=== PATIENT | male | born 2000 | race Caucasian/White ===

== ENCOUNTER 2023-12-31 09:29 | Emergency (ER) | payer OTHER, SELFPAY ==
[2023-12-31 09:44] VITALS: BP 123/83; PULSE 80; RESP 18; TEMP 36.2; O2SAT 99; BMI 22.7
[2023-12-31 10:59] LABS: MANUAL DIFF FLAG NO
[2023-12-31 11:03] LABS: Appearance Urine Clear; Color Urine Yellow; Glucose Urine UA Negative (Negative); Leukocyte Esterase Urine Negative (Negative); Nitrite Urine Negative (Negative); PH 5.5 (5.0-9.0); Specific Gravity - Urine 1.025 (1.005-1.025); Urine Blood Negative (Negative); Urine Ketones Negative (Negative); Urine Protein Negative (Neg-Trace)
[2023-12-31 11:05] LABS: Basophils Percent Auto 0.6 % (0-2); Eosinophils Absolute Auto 0.1 X10*3/uL (0.0-0.4); Hematocrit 48.2 % (42.0-52.0); Hemoglobin 16.1 g/dl (14.0-18.0); Imm Gran Abs Auto 0.02 X10*3/uL (0.00-0.03); Imm Gran Pct Auto 0.3 % (0.0-0.4); Lymphocytes Absolute Auto 2.1 X10*3/uL (1.2-4.9); Lymphocytes Percent Auto 28.7 % (20-40); Mean Corpuscular HGB Conc 33.4 g/dl (31.0-36.0); Mean Corpuscular Hemoglobin 29.2 pg (27.0-33.0); Mean Corpuscular Volume 87.5 fL (80.0-98.0); Mean Platelet Volume 11.8 fL (9.4-12.4); Monocytes Absolute Auto 0.5 X10*3/uL (0.1-1.2); Monocytes Percent Auto 6.8 % (2-11); Neutrophils Absolute Auto 4.4 x10*3/uL (2.0-8.3); Neutrophils Percent Auto 61.6 % (45-73); Platelet Count 223 X10*3/uL (160-400); Red Blood Count 5.51 X10*6/uL (4.60-5.80); Red Cell Distribution Width 12.5 % (11.0-16.0); White Blood Count 7.2 X10*3/uL (4.8-10.8)
[2023-12-31 11:19] LABS: Alanine Aminotransferase 18 U/L (0-40); Albumin Level 4.6 g/dL (3.5-5.0); Alkaline Phosphatase 72 U/L (39-117); Anion Gap 9 (12-20); Aspartate Amino Transferase 20 U/L (5-37); Bilirubin Total 0.9 mg/dL (0.0-1.0); Blood Urea Nitrogen 11 mg/dL (9-16); Calcium 9.9 mg/dL (8.4-10.2); Carbon Dioxide 30 mmol/L (22-29); Chloride 105 mmol/L (96-108); Creatinine Clr Calc Pharmacy 101.6; Estimated Glomerular Filt Rate > 60; Glucose Random 95 mg/dL (60-115); Potassium 4.2 mmol/L (3.3-5.1); Sodium 140 mmol/L (135-145); Total Protein 7.7 g/dL (6.5-8.0)
[2023-12-31 11:40] LABS: Syphilis Screen Nonreactive (Nonreactive)
[2023-12-31 12:00] VITALS: BP 115/75; PULSE 85; TEMP 36.7; O2SAT 100
--- NOTE | 2023-12-31 13:19 | ED_ITS ---
[facility] - General Adult General Chief complaint: Headache Stated complaint: Headache Time Seen by Provider: 12/31/23 12:25 Source: patient and RN notes reviewed Mode of arrival: ambulatory Limitations: no limitations History of Present Illness ED Provider: Staci Ballesteros PA-C [facility] narrative: This is a 23-year-old male, with no known medical problems, who presents emergency department with complaints of headache, slight dysuria, and penile itching x2 weeks. Patient states that he was told by his partner that she had syphilis in the past. He states that since acknowledging this information he has felt ?unwell?. He states that he has had headaches, dysuria, and penile itching. He denies any testicular pain. No fevers, chills, nausea, vomiting or diarrhea. No change in diet. He does report increased diarrhea over the last several weeks. He also reports that he has lost approximately 6-7 lb without changing his diet over the last 2 weeks. No drug use. No penile rashes or lesions. Patient states that his partner told him last week that she tested positive for syphilis and received treatment. He has not had any lesions that he has noted. No other complaints or concerns at this time. MD complaint: Headache, dysuria, penile itching Onset (ago): week(s) Location: genitals Radiation: non-radiation Severity: moderate Quality: aching Pain Consistency: constant Relieving factors: none Exacerbating factors: none Associated symptoms: denies other symptoms Related Data Allergies Allergy/AdvReac Type Severity Reaction Status Date / Time No Known Allergies Allergy Verified 12/31/23 09:45 Review of Systems 2 Review of Systems: Yes all other systems are reviewed and are negative Constitutional: Constitutional: Reports as per [facility] Past Medical History Attestation statement: The following information was validated with the patient. Social History Social History Advance Directives: No Do you have a plan to hurt others: No Plan Physical Exam ED Vital Signs: Vital Signs - 24 hr 12/31/23 09:44 12/31/23 12:00 12/31/23 14:00 Temperature 97.2 F 98.1 F 98.2 F Pulse Rate 80 85 66 Respiratory Rate 18 Blood Pressure 123/83 115/75 122/78 Pulse Oximetry 99 100 99 Oxygen Delivery Method Room Air Room Air Room Air 12/31/23 15:58 Temperature 98.2 F Pulse Rate 66 Respiratory Rate 18 Blood Pressure 122/78 Pulse Oximetry 99 Oxygen Delivery Method Room Air BMI result Body Mass Index 22.7 Const General: cooperative, comfortable and no acute distress Orientation/consciousness: patient oriented x3 Limitations: no limitations HENMT Head: Yes normal to inspection, Yes normocephalic and Yes atraumatic Ears: hearing grossly normal bilaterally General nose exam: Normal external nose present Face and sinus: Yes normal facial exam Mouth: Normal oral and palatal mucosa present, oropharynx normal and moist mucous membranes Throat: Yes posterior oropharynx normal Eyes General: appearance normal, both eyes and all related structures Eyelids: Yes eyelids normal Conjunctivae: conjunctivae normal Sclerae: sclerae normal Pupils: Equal, round and reactive pupils present EOM: EOMs intact bilaterally Neck Neck: Yes normal visual inspection, Yes full ROM and Yes no lymphadenopathy Lymphatic: no lymphadenopathy noted Chest Chest palpation & inspection: normal inspection of the chest Resp Effort & Inspection: normal respiratory effort and able to speak in complete sentences Auscultation: clear to auscultation bilaterally, no crackles, no rales, no rhonchi and no wheezes Cardio Rate: regular rate Rhythm: regular rhythm Heart sounds: S1 normal heart sound present and S2 normal heart sound present GI Other: Abdomen is soft and nontender. Inspection: Yes normal to inspection Other: examination was performed with Lynette Islas RN present at all times Uncircumcised male, able to fully retract foreskin without difficulty, no penile lesions or tenderness. No drainage or discharge. No overlying erythema or warmth. No testicular pain or swelling Skin General skin exam: no rashes or lesions noted Trauma: no lacerations or abrasions Wounds: no wounds Neuro General: patient oriented x3 and moves all extremities Cranial nerves: Yes Equal, round and reactive pupils present Extrem General: Yes normal to inspection Right upper extremity: normal to inspection Left upper extremity: normal to inspection Right lower extremity: normal to inspection Left lower extremity: normal to inspection Course Reevaluation(s) Reevaluation #1: examination was unremarkable. Labs, unremarkable. He tested negative for syphilis, HIV, chlamydia and gonorrhea. Given known positive exposure to syphilis last week, it is unclear whether not this is too close to test positive for syphilis. Given this, I discussed the pros and cons of receiving pen G injection. He is agreeable as he would like to be treated for this given known positive exposure. His urine is unremarkable. He will follow-up with [facility] for primary care treatment. He understands and agrees with plan. Patient stable for discharge. Medications Administered Discontinued Medications Generic Name Dose Route Start Last Admin Trade Name Darren PRN Reason Stop Dose Admin Penicillin G Benzathine 2,400,000 unit 12/31/23 15:35 12/31/23 15:48 Penicillin G Benzathine 2,400,000 Unit/4 Ml Syringe IM 12/31/23 15:36 2,400,000 unit ONCE ONE Administration Medical Decision Making Medical Decision Making [facility] Narrative: This is a 23-year-old male who presents emergency department with complaints of weight loss, dysuria, and headaches over the last 2 weeks. On arrival, vital signs within normal limits. He is speaking full sentences under no acute distress. He recently moved to the area. He was told by his partner that she has a history of syphilis, unclear when she had this infection, however patient is concerned that he may have contracted this. He also reports 7 lb weight loss over the last 2 weeks without any changes in his diet. Does not have a primary care physician at this time. No family medical history. No profound weight loss, no out of the country travel. Differential diagnoses include STI exposure, UTI, cystitis, electrolyte derangement. Differential Diagnosis Differential Diagnoses: The differential diagnosis associated with the presentation includes See above Admission/Observation Consideration of admission/observation: Escalation of care including admission/observation considered Lab Data [facility] Lab Attestation statement: I reviewed the patient's lab results. No leukocytosis, stable H&H, chemistry within normal limits, negative gonorrhea chlamydia, RPR, and HIV. 12/31/23 10:55 12/31/23 10:55 Labs: Lab Results 12/31/23 12/31/23 Range/Units 10:55 14:01 WBC 7.2 (4.8-10.8) X10*3/uL RBC 5.51 (4.60-5.80) X10*6/uL Hgb 16.1 (14.0-18.0) g/dl Hct 48.2 (42.0-52.0) % MCV 87.5 (80.0-98.0) fL MCH 29.2 (27.0-33.0) pg MCHC 33.4 (31.0-36.0) g/dl RDW 12.5 (11.0-16.0) % Plt Count 223 (160-400) X10*3/uL MPV 11.8 (9.4-12.4) fL Immature Gran % (Auto) 0.3 (0.0-0.4) % Neut % (Auto) 61.6 (45-73) % Lymph % (Auto) 28.7 (20-40) % [place] % (Auto) 6.8 (2-11) % Eos % (Auto) 2.0 (0-4) % Baso % (Auto) 0.6 (0-2) % Lymph # (Auto) 2.1 (1.2-4.9) X10*3/uL [place] # (Auto) 0.5 (0.1-1.2) X10*3/uL Eos # (Auto) 0.1 (0.0-0.4) X10*3/uL Baso # (Auto) 0.0 (0.0-0.2) X10*3/uL Abs Immat Gran (auto) 0.02 (0.00-0.03) X10*3/uL Absolute Neuts (auto) 4.4 (2.0-8.3) x10*3/uL Absolute Nucleated RBC 0.000 (0.0-0.012) X10*3/uL Nucleated RBC % (auto) 0.0 (0.0-0.2) /100WBC Sodium 140 (135-145) mmol/L Potassium 4.2 (3.3-5.1) mmol/L Chloride 105 (96-108) mmol/L Carbon Dioxide 30 H (22-29) mmol/L Anion Gap 9 L (12-20) BUN 11 (9-16) mg/dL Creatinine 1.02 (0.5-1.4) mg/dL Estim Creat Clear Calc 101.6 Estimated GFR > 60 Random Glucose 95 (60-115) mg/dL Calcium 9.9 (8.4-10.2) mg/dL Total Bilirubin 0.9 (0.0-1.0) mg/dL AST 20 (5-37) U/L ALT 18 (0-40) U/L Alkaline Phosphatase 72 (39-117) U/L Total Protein 7.7 (6.5-8.0) g/dL Albumin 4.6 (3.5-5.0) g/dL Hold Yellow Top See Note Urine Color Yellow Urine Appearance Clear Urine pH 5.5 (5.0-9.0) Ur Specific [place] 1.025 (1.005-1.025) Urine Protein Negative (Neg-Trace) mg/dL Urine Glucose (UA) Negative (Negative) mg/dL Urine Ketones Negative (Negative) mg/dL Urine Blood Negative (Negative) Urine Nitrite Negative (Negative) Ur Leukocyte Esterase Negative (Negative) T.pallidum Ab (EIA) Nonreactive (Nonreactive) Chlam trachomat DNA PCR NOT DETECTED (Not Detect.) HIV 1&2 Ab/P24 Ag 4thGn Nonreactive (Nonreactive) N.gonorrhoeae DNA (PCR) NOT DETECTED (Not Detect.) Discharge Plan Discharge Clinical Impression: Possible exposure to STI Patient Disposition: Home, Self-Care Instructions: Postexposure Prophylaxis (ED) Additional Instructions: You were seen in the emergency department. Your blood work was reassuring. You tested negative for gonorrhea, chlamydia, syphilis, and HIV. We treated you with the 1 time dose of penicillin to treat for syphilis. You did not test positive for this however given recent exposure, we will treat. You need to follow-up with a primary care physician. You may also follow-up with [facility] for rehabilitation, they can perform STI testing as a walk-in appointment. Drink plenty of fluids get plenty of rest. If any new or worsening symptoms occur including but not limited to fevers, chills, worsening symptoms, please return for re-evaluation. Interventions: ED Discharge Assessment Last Done: 12/31/23 15:58 Discharge Date/Time: 12/31/23 15:59 Print Language: [place]
[2023-12-31 13:24] LABS: CT PCR NOT DETECTED (Not Detect.); NG PCR NOT DETECTED (Not Detect.)
[2023-12-31 14:00] VITALS: BP 122/78; PULSE 66; TEMP 36.8; O2SAT 99
[2023-12-31 14:40] LABS: HIV AB/AG Nonreactive (Nonreactive); HIV Num 1 0.08 S/CO (0.00-0.99)
[2023-12-31] MEDS: Penicillin G Benzathine 2,400,000 UNIT/4 ML SYRINGE 2400000 UNIT IM (15:48)
[2023-12-31 15:58] VITALS: BP 122/78; PULSE 66; RESP 18; TEMP 36.8; O2SAT 99
== END 2023-12-31 15:59 | disposition home or self-care (01) ==
PROVIDERS: Physician Assistant Medical; Emergency Provider Emergency Medicine
DX: R51.9 Headache, unspecified (principal); R30.0 Dysuria; B35.6 Tinea cruris; Z20.2 Contact with and (suspected) exposure to infections with a predominantly sexual mode of transmission; Z79.899 Other long term (current) drug therapy
CPT/HCPCS: 36415; 80053; 81003; 85025; 86780; 87491; 87591; 96372; 99283; 99284; J0561